=== PATIENT | female | born 1965 | race Caucasian/White ===

== ENCOUNTER → 2024-09-03 | Outpatient (CLI) | payer OTHER ==
[2024-09-05 16:19] LABS: C DIFFICILE DNA NEGATIVE (Negative)
== END ==
LOC: LAB 11:33 → LAB SHORT 11:33 → LAB FUT 09-02 09:15
DX: Z20.818 Contact with and (suspected) exposure to other bacterial communicable diseases (principal)
CPT/HCPCS: 87493

== ENCOUNTER → 2025-09-22 | Outpatient (CLI) | payer OTHER ==
[2025-09-22 21:10] LABS: Calcium, Urine 14.3 mg/dL (< 17.5); Calcium, Urine Calculation 328.9 mg/24hrs (42.0-353.0); Phosphorus, Urine 63.6 mg/dL (20.0-60.0)
[2025-09-22 21:45] LABS: Microalbumin, Urine Quant. <5.000 mg/L (0.000-20.000); Protein, Urine Quantitative 6.4 mg/dL (0.0-11.9); Sodium, Urine 74 mmol/L (20-110); Uric Acid, Urine 25.0 mg/dL (7.5-49.5)
== END | disposition home or self-care (01) ==
LOC: LAB SHORT 09:00 → LAB 09:00 → LAB FUT 09-15 13:30
PROVIDERS: Internal Medicine Nephrology
DX: N18.30 Chronic kidney disease, stage 3 unspecified (principal); D63.1 Anemia in chronic kidney disease; N25.81 Secondary hyperparathyroidism of renal origin; D51.8 Other vitamin B12 deficiency anemias; D52.8 Other folate deficiency anemias; D50.9 Iron deficiency anemia, unspecified; E55.9 Vitamin D deficiency, unspecified; E78.00 Pure hypercholesterolemia, unspecified; R76.9 Abnormal immunological finding in serum, unspecified; R94.5 Abnormal results of liver function studies
CPT/HCPCS: 81050; 82043; 82131; 82340; 82507; 82570; 83945; 84105; 84133; 84156; 84300; 84560